=== PATIENT | male | born 2005 | race African-American/Black ===

== ENCOUNTER 2025-07-11 16:36 | Emergency (ER) | payer SELFPAY ==
[~2025-07-11] VITALS: Ht 167.6 cm; Wt 81.8 kg
[2025-07-11] MEDS ORDERED: ALBU18HF12 IH (16:40)
[2025-07-11 16:41] VITALS: BP 123/77; PULSE 88; RESP 18; TEMP 97.9; O2SAT 99
[2025-07-11] MEDS ORDERED: BACITRACIN 0.9 GM PACKET OINTMENT TP ONE (17:00)
[2025-07-11] MEDS: LIDOCAINE 1% 10 ML VIAL ID ONE (17:49)
[2025-07-11] MEDS: PERTUSS(ACELL),DIPH,TET/PF 0.5 ML SYRINGE [ADULT] IM. ONE (18:45)
[2025-07-11] MEDS: IBUPROFEN 600 MG TABLET PO ONE (18:46)
[2025-07-11] MEDS: BACITRACIN 28 GM OINTMENT TP ONE (18:46)
== END 2025-07-11 18:54 | disposition home or self-care (01) ==
LOC: EMS 16:36
DX: S61.210A Laceration without foreign body of right index finger without damage to nail, initial encounter (principal); J45.909 Unspecified asthma, uncomplicated; Z79.899 Other long term (current) drug therapy; W26.0XXA Contact with knife, initial encounter; Y93.89 Activity, other specified; Y92.89 Other specified places as the place of occurrence of the external cause; Y99.8 Other external cause status
CPT/HCPCS: 99283; 90715; 90471; 12001; J3490